=== PATIENT | male | born 1990 ===

== ENCOUNTER 2025-02-01 09:32 | Outpatient (REF) | payer OTHER, SELFPAY ==
--- OUTSIDE RECORDS SUMMARY | 2025-02-01 11:00 | XMS_ITS | Encounter Summary ---
Author Organization [facility] Address [address] [place] [address] Phone Care Team Providers Care High Man Name Role Phone Unavailable Primary Care Provider Unavailabl e Encounter Details Date Type Department Care Team (Late st Contact Info) Description 04/18/2018 Conversion [facility]counter [facility] [address] [address] Social History Tobacco Use Types Packs/Day Years Used Date Smoking Tobacco: Never Assessed Sex and Gender Information Value Date Recorded Sex Assigned at Not on file Legal Sex Male 6:08 PM EDT Gender Identity Not on file Sexual Orientation Not on file documented as of this encounter Plan of Treatment Not on file documented as of this encounter Visit Diagnoses Not on filedocumented in this encounter
--- OUTSIDE RECORDS SUMMARY | 2025-02-01 11:00 | XMS_ITS | Clinical Summary ---
Author Organization [facility] Address [address] [place] [address] Phone Care Team Providers Care Bread Dumper Name Role Phone Unavailable Primary Care Provider Unavailabl e Immunizations Immunization Administration Dates Next Due DTaP 06/04/1998, 5,04/30/1993,02/28,1992 Hep B, ped/adol 07/31/1993,1992,1992 Hib (PRP-T) 02/04/1994, 3,02/28/1993,12/31 Influenza, injectable, quadrivalent 09/08/2011 Influenza, injectable, triva lent, preservative free 11/25/2007 MMR 06/04/1998,02/04/1994 Meningococcal Conj (Menactra) MCV4P 09/08/2011,0 07/10/2008 OPV 06/04/1998, 5,02/28/1993,12/31 Td (adult) (Tenivac), 5 Lf t etanus toxoid, PF, adsorbed 09/03/2005 Tdap 09/08/2011 Varicella 1992 Family History Relation Name Status Comments Father Alive healthy, IBS Maternal Grandfather Alive hyperte nsion, hyperlipidemia, ALYSA Maternal Grandmother Alive IBS, DM ., hypertension, transient ischemia Mother Alive healthy Other Alive Siblings: healt hy Paternal Grandfather Alive CAD, st roke Paternal Grandmother Alive healthy Social History Tobacco Use Types Packs/Day Years Used Date Smoking Tobacco: Never Assessed Sex and Gender Information Value Date Recorded Sex Assigned at Not on file Legal Sex Male 6:08 PM EDT Gender Identity Not on file Sexual Orientation Not on file Last Filed Vital Signs Vital Sign Reading Time Taken Comments Blood Pressure 124/74 09/08/2011 12:00 AM EDT Pulse - - Temperature 37.2 ??C (98.9 ??F) 04/09/2011 12:00 AM E DT Respiratory Rate - - Oxygen Saturation - - Inhaled Oxygen Concentration - - Weight 76.9 kg (169 lb 9.6 oz) 09/08/2011 12:00 AM EDT Height 181.6 cm (5' 11.5 ) 09/08/2011 12:00 AM E DT Body Mass Index 23.32 09/08/2011 12:00 AM EDT Plan of Treatment Health Maintenance Due Date Last Done Comments Varicella Vaccines (1 of 2 - 13+ 2-dose series) 2005 1992 DTaP,Tdap,and Td Vaccines (7 - Td or Tdap) 09/08/2021 09/08/2011, 09/03/2005, 06/04/1998, Additional history exists Influenza Vaccines (#1) 2024 09/08/2011, 11/25 COVID-19 Vaccine ( season) 2024 Hepatitis B Vaccines Completed 07/31/1993, 1992, 1992 HIB Vaccines Completed 02/04/1994, 11/1992, 02/28/1993, Additional history exists IPV Vaccines Completed 06/04/1998, 01/1995, 02/28/1993, Additional history exists MMR Vaccines Completed 06/04/1998, 02/04/1994 Meningococcal Vaccine Completed 09/08/2011, 008 HPV Vaccines Aged Out No longer eligi ble based on patient's age to complete this topic Hepatitis A Vaccines Aged Out No long er eligible based on patient's age to complete this topic Men B Vaccine Aged Out No longer elig ible based on patient's age to complete this topic Pneumococcal Vaccine Aged Out No long er eligible based on patient's age to complete this topic
--- OUTSIDE RECORDS SUMMARY | 2025-02-01 11:00 | XMS_ITS | Continuity of Care Document ---
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 It does not include entries that were removed or entered in error. Problem Status Onset Date Problem Type Date of Resolution Comme nts Source bronchitis Active Condition DoD vocal cord disorders Active Condition DoD Allergies, Adverse Reactions, Alerts Combined list of allergies from Department of Defense and Veterans Affairs facilities. It does not include entries that were removed or entered in error. Substance Category Reaction Severity Reaction type Status Date Reported Comments Source No Known Allergies Drug allergy (disorder) active 09/01/2014 [place] [address] Immunizations Combined list of available immunizations from the Department of Defense and Veterans Affairs facilities. 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 Status Comments Source Influenza, injectable, quadrivalent, preservative free 6 2018 [id number] 150 Seqirus (SEQ) complet ed Influenza , injectabl e, quadrival ent, preservat naca free DoD Influenza, seasonal, injectable 1 2017 [id number] Seqirus (SEQ) comple t ed Influenza , seasonal, injectabl e DoD Influenza, seasonal, injectable, preservative free 1 2016 [id number] Transcribed (TRS) complet ed Influenza , seasonal, injectabl e, preservat anca free DoD influenza virus vaccine, unspecified formulation 1 2015 [id number] Seqirus (SEQ) comple t ed influenza virus vaccine, unspecifi ed formulati on DoD influenza, live, intranasal, quadrivalent 2 2014 [id number] [employer] (MED) complet ed influenza , live, intranasa l, quadrival ent DoD hepatitis A and hepatitis B vaccine 3 2014 [id number] SmithKline (SKB) complet ed hepatitis A and hepatitis B vaccine DoD hepatitis A and hepatitis B vaccine 1 2013 [id number] 104 [employer] (SKB) complet ed hepatitis A and hepatitis B vaccine DoD Influenza, seasonal, injectable, preservative free 1 2013 [id number] 140 Novartis [employer]. (NOV) complet ed Influenza , seasonal, injectabl e, preservat anca free DoD hepatitis A and hepatitis B vaccine 1 2013 [id number] 104 [facility] (SKB) complet ed hepatitis A and hepatitis B vaccine DoD poliovirus vaccine, inactivated 1 2013 [id number] 10 Sanofi Pasteur (PMC) complet ed polioviru s vaccine, inactivat ed DoD meningococcal polysaccharid e (groups A, C, Y and W-135) diphtheria toxoid conjugate vaccine (MCV4P) 1 2013 [id number] Sanofi Pasteur (PMC) complet ed meningoco ccal polysacch aride (groups A, C, Y and W-135) diphtheri a toxoid conjugate vaccine (MCV4P) DoD tetanus toxoid, reduced diphtheria toxoid, and acellular pertu is vaccine, adsorbed 1 2013 [id number] 115 [employer] (SKB) complet ed tetanus toxoid, reduced diphtheri a toxoid, and acellular pertussis vaccine, adsorbed DoD Adenovirus, type 4 and type 7, live, oral [id number] [facility] (BRR) complet ed Adenoviru s, type 4 and type 7, live, oral DoD measles virus vaccine 0 2013 05 () Not Given measles virus vaccine DoD rubella virus vaccine 0 2013 06 () Not Given rubella virus vaccine DoD mumps virus vaccine 0 2013 07 () Not Given mumps virus vaccine DoD varicella virus vaccine 0 2013 21 () Not Given varicella virus vaccine DoD Encounters Combined list of: 1) Encounters from Department of Veterans Affairs facilities going backup to the last 18 months, not all VA inpatient encounters are included; 2) Encounters from the Department of Defense facilities going backup to 280 months. Location Location Details Encounter Type Encounter Number Reason For Visit Attending Provider ADM Date DC Date Status Disposition Source [facility] [address](Opt ometry [facility]) OUTPATIENT [id number] Notes Entered by: ALOK SEPULVEDA 26 Jul 2014 0754 ------- ------- ------- ------- -- RIZWAN YU 07/26 Released w/o Limitations [facility] [place] [address](O ptometr y Clinic BMT [facility]) [place] [address]([facility]) OUTPATIENT [id number] DAPHNIE LOMELI 08/08 Released w/o Limitations [facility] [place] [address]([facility] d) [place] [address](MAS Beast) OUTPATIENT [id number] Notes Entered by: Jessenia CHRIS 01 Sep 2014 0904 ------- ------- ------- ------- -- pain pack BELLA CHRIS 09/01 Released w/o Limitations [facility] [place] [address](M Beast) [place] [address]([facility] S01B Taj) OUTPATIENT [id number] ftsdemetriol MAGNO LEE 02/09 Released w/o Limitations [facility] [place] [address](A MH S01B Taj ) [place] [address]([facility] S01B Taj) OUTPATIENT [id number] EUGENIA/VINI HOLCOMB 04/30 Released w/o Limitations [facility] [place] [address](A MH S01B Taj ) [facility]) OUTPATIENT [id number] Notes Entered by: CIRA MENDEZ 04 Jun 2015 1259 ------- ------- ------- ------- -- TREVA In-Proc KULWINDER Zee 06/04 Released w/o Limitations [facility] [employer] [facility] [employer]([facility]) OUTPATIENT [id number] Notes Entered by: Milton MATTHEW 28 Jun 2015 0910 ------- ------- ------- ------- -- Mole removal SAMUEL MATTHEW 06/28 Released w/o Limitations [employer]([facility]) [employer]([facility] Team C AD/Non-AD ) OUTPATIENT [id number] ROSA hCatterjee 06/28 Released w/o Limitations [employer]([facility] Team C AD/Non- AD) [facility]) TELE CONSULT [id number] Notes Entered by: Milton MATTHEW 03 Jul 2015 1136 ------- ------- ------- ------- -- Path results CHARLIE RANGEL 07/03 [facility]) OUTPATIENT [id number] expecto rant cough ANTONIA CARR 07/05 Released w/o Limitations [facility] on[facility]in e [facility]) [facility]) OUTPATIENT [id number] ent/ref EDUARDO Hyatt 07/11 Released w/o Limitations [facility](W arrior Operati onal Medicin e A) [facility]([place] laryngolo EG) OUTPATIENT [id number] VOCAL CORD DISORDE RS ROSAMARIA SANTIAGO 08/02 Released w/o Limitations [facility](O tolaryn golo EG) [place] [address](AFN G 104 Med Sq-FM) OUTPATIENT [id number] Notes Entered by: STACY SOSA 17 Apr 2017 1002 ------- ------- ------- ------- -- [employer] ice PHAQ STACY SOSA 04/17 [facility] [place] [address](A FNG 104 Med Sq-FM) [place] [address](AFN G 104 Med Sq-FM) OUTPATIENT [id number] Notes Entered by: KEMAL CRUZ 04 Aug 2018 1448 ------- ------- ------- ------- -- KEMAL DUEÑAS 08/04 Released w/o Limitations [facility] [place] [address](A FNG 104 Med Sq-FM) [place] [address](AFN G 104 Med Sq-FM) OUTPATIENT [id number] Notes Entered by: KEMAL CRUZ 06 Mar 2019 1249 ------- ------- ------- ------- -- PFB KEMAL CRUZ 03/06 Released w/o Limitations [facility] [place] [address](A FNG 104 Med Sq-FM) [place] [address](AFN G 104 Med Sq-FM) OUTPATIENT [id number] Notes Entered by: KEMAL CRUZ 07 May 2019 0859 ------- ------- ------- ------- -- KEMAL Jones 05/07 Released with Work/Duty Limitations [facility] [place] [address](A FNG 104 Med Sq-FM) [place] [address](AFN G 104 Med Sq-FM) OUTPATIENT [id number] Notes Entered by: STACY SOSA 07 Aug 2019 1424 ------- ------- ------- ------- -- [employer] ice STACY WOOD 08/07 Released w/o Limitations [facility] [place] [address](A FNG 104 Med Sq-FM) [place] [address](AFN G 104 Med Sq-FM) OUTPATIENT [id number] Notes Entered by: NANCYKEMAL YUN Maya 04 Sep 2019 1122 ------- ------- ------- ------- -- L ankle pain KEMAL CRUZ TINO 09/04 Released with Work/Duty Limitations [facility] [place] [address](A FNG 104 Med Sq-FM) [place] [address](AFN G 104 Med Sq-FM) OUTPATIENT [id number] Notes Entered by: NANCYKEMAL TINO 10 Dec 2019 0900 ------- ------- ------- ------- -- Left ankle pain KEMAL CRUZ TINO 12/10 Released with Work/Duty Limitations [facility] [place] [address](A FNG 104 Med Sq-FM) [facility] En[facility] [id number] 03/18 [facility] En[facility] [id number] 05/06 [facility] [id number] 09/14 [facility] En[facility] [id number] 09/15 [facility] Procedures Combined list of: 1) Procedures from Department of Veterans Affairs facilities going back up to thelast 18 months, not all VA non-surgical procedures are included; 2) All procedures from the Department of Defense facilities. Procedure Procedure Type Code Date Perfomer Comments Sour e LARYNGOSCOPY, FLEXIBLE; DIAGNOSTIC 5 DoD SHAVING OF EPIDERMAL OR DERMAL LESION, SINGLE LESION, TRUNK, ARMS OR LEGS; LESION DIAMETER 0.6 TO 1.0 CM 5 DoD INFUSION, NORMAL SALINE SOLUTION , [address] [facility] DETERMINATION OF REFRACTIVE STATE 4 [facility] Laryngoscopy Diagnostic Flexible Laryngoscopy Diagnostic Flexible 23329 5 ROSAMARIA SANTIAGO Verbal consent obtained. Afrin and lidocaine used. Findings per exam. No complications. DoD Shaving Of Lesion Trunk .6 to 1cm Shaving Of Lesion Trunk .6 to 1cm 90228 5 SAMUEL MATTHEW DoD Infusion, normal saline solution , [address] [facility] IV Infusion For Hydration 31 Minutes To 1 Hour IV Infusion For Hydration 31 Minutes To 1 Hour 45193 5 VINI BUTTS Screening Test Of Visual Acuity, Quantitative, Bilateral Screening Test Of Visual Acuity, Quantitative, Bilateral [address] [facility] Determination Of Refractive State Determination Of Refractive State [address] [facility] Spectacles Services Fitting Monofocal Except For Aphakia Spectacles Services Fitting Monofocal Except For Aphakia [address] [facility] Social History Combined list of available smoking, tobacco, and other social history from Department of Defense and Veterans Affairs facilities. Social History Type Response Date Comment Sour e This section is an empty social history section. [facility]
--- OUTSIDE RECORDS SUMMARY | 2025-02-01 11:01 | XMS_ITS | Data Portability ---
Author Organization [facility] Address [address] [place] [address] Assessment Encounter Date Assessment Date Assessment LastModified by Organization Details LastModified Time 2024 2024 [id number] [place] [id number] (PITCH GATHERER) : MDM LOW MUST MEET 2 OF 3 ELEMENTS: PROBLEMS, DATA OR RISK ELEMENT 1: PROBLEMS ADDRESSED (LOW): 2 OR MORE SELF-LIMITED OR MINOR PROBLEMS OR 1 STABLE CHRONIC ILLNESS OR 1 ACUTE UNCOMPLICATED ILLNESS OR INJURY ELEMENT 2: DATA TO BE REVISED AND ANALYZED (LOW) MUST MEET 1 OF 2 CATEGORIES: CATEGORY 1. REVIEW OF PRIOR EXTERNAL NOTES/RESULTS, ORDERING OF TEST(S) CATEGORY 2. ASSESSMENT REQUIRING INDEPENDENT HISTORIAN(S) INCLUDE WHO THE HISTORIAN IS AND RELATION TO PT AND WHY PT IS UNABLE TO GIVE COMPLETE HISTORY ELEMENT 3: RISK (LOW) RISK OF COMPLICATIONS AND/OR MORBIDITY OR MORTALITY OF PATIENT MANAGEMENT PROVIDER MUST THOROUGHLY DOCUMENT ALL OF THE ELEMENTS COVERED Not available 2024 15:45:54 12/23/2024 12/23/2024 Patient agreed and verbally consents to this audio and video Telehealth appt via a secure platform [email or web address] Not available 12/23/2024 09:25:29 Plan of Treatment Reminders Order Date Submit Date Provider Last Modified By Organization Details Last Modified Time Details Appointments None recorded. Lab lipid panel, serum 2023 024 [facility], [address] [place] [address], [place], [address], 11:29:59 CMP, serum or plasma 2023 024 [facility], [address] [place], [address], 4 16:08:16 testostero ne, free + total, serum 2023 [facility], [address] [place] [address], [address], 5 08:49:38 lh + FSH, serum 2023 [facility], [address] [place] [address], [address], 4 16:08:16 CBC w/ auto diff 2023 [facility], [address] [place] [address], [address], 5 10:55:34 TSH, serum or plasma 2023 [facility], [address] [place] [address], [address], 4 16:08:16 cortisol, am, serum 2023 [facility], [address] [place] [address], [address], 4 16:08:16 iron + TIBC + ferritin, serum 2023 [facility], [address] [place] [address], [address], 4 16:08:17 vitamin D, 25-hydroxy , total, serum 2023 [facility], [address] [place] [address], [address], 4 16:08:17 vitamin B12, serum 2023 [facility], [address] [place] [address], [address], 4 16:08:17 babesia microti igg+igm Ab, serum 2023 024 [facility], [address] [place] [address], [address], 5 17:16:31 anaplasma phagocytop hilum Ab, serum 2023 024 [facility], [address] [place] [address], [address], 5 17:10:48 HbA1c (hemoglobi n A1c), blood 2023 024 [facility], [address] [place] [address], [address], 5 13:35:26 Referral None recorded. Procedures None recorded. Surgeries None recorded. Imaging None recorded. Medication Orders Zithromax Z-West 250 mg tablet 2024 025 [id number], [address] [place] [address], [address], 5 08:36:33 prednisone 10 mg tablet 2024 025 [facility] #[id number], [address] [place] [address], [address], 5 08:36:22 tramadol 50 mg tablet 2023 024 [facility] #0838, [address] [place], [address], 4 15:57:26 alprazolam 0.5 mg tablet 2023 024 [facility] #0838, [address] [place], [address], 4 15:57:32 testostero ne 1 % (50 mg/5 gram) transderma l gel packet 2023 024 [facility] #0833, [address] [place], [address], 4 15:57:34 Patient TargetsNo targets recorded. Patient Instructions Encounter Date Encounter Id Patient Instructions Last Modified By Organization Details Last Modified Time 2024 [id number] methacholine challenge* [email or web address] Not available 11/08/2024 08:00:16 complete PFT w/ post bronchodilator spirometry* - note, needs a methacholine challenge as well see order [email or web address] Not available 12/09/2024 08:37:18 learning about vitamin D Not available 2024 15:57:22 Reason for Referral None Reported. Results Created Date Observation Date Name Description Value Unit Range Abnormal Flag Note LastModifiedBy Organization Detail LastModifiedTime 12/09/1912/09/2024 compl ete PFT w/ post [facility] hodil ator doug metry * No observ ation record ed. [email or web address] [address], [address], 12/09/2024 08:45:53 Result Notes None recorded. Problems Name Problem SNOMED Code Status Onset Date Resolution Date Notes Provider Name and Address Organization Details Recorded Time Injury of left Achilles tendon Active [facility] 4 09:42:16 Anxiety 86930502 Active [facility] 4 09:42:44 Posttrauma tic stress disorder 08576083 Active [facility] 4 09:42:54 Gastroesop hageal reflux disease 456184683 Active 2006 [facility] 4 09:43:26 Insomnia 452597833 Active 2006 [facility] 4 09:43:43 Low back pain 434847146 Active 2014 [facility] [place] [facility] 4 09:57:39 Vitamin D deficiency 71735749 [facility] 2014 [facility] 4 09:58:10 Depressive disorder 89843420 Active 2006 [facility] 4 09:58:35 Hypogonadi sm 52973096 Active 2023 PAO VIVAS [address] [place] [address], [id number], [facility] 4 13:20:00 Fatigue 82497617 Active 2023 Patrick Lilly DO [address] [place] [address], [address], [facility] 4 15:51:26 Multiple joint pain 74292049 Active 2023 Patrick Lilly DO [address] [place] [address], [address], [facility] 4 15:53:46 Dyspnea on exertion 69318938 Active 2023 Patrick Lilly DO [address] [place] [address], [address], [facility] 4 15:54:23 Acute sinusitis 50138262 Active 2024 PAO VIVAS [address] [place] [address], [address], [facility] 5 09:25:16 Multiple premature ventricula r complexes 026395068 Active 2024 PAO VIVAS [address] [place] [address], [address], [facility] 5 09:09:15 Palpitatio ns 69269486 Active 2024 PAO VIVAS [address] [place] [address], [address], [facility] 5 13:52:32 Ectopic atrial tachycardi a 556758295 Active 2024 Patrick Lilly, DO [address] [facility], [place], [address], [facility] 09:27:35 Problem Notes None recorded. Procedures Surgical History None recorded. Imaging Results Imaging Date Name Status LastModified by Organization Details LastModified Time 12/09/2024 complete PFT w/ post bronchodilator spirometry* completed [email or web address] [facility] [address] [place], [address], 12/09/2024 08:45:53 Procedure Notes None recorded. Medical Equipment None Reported. Allergies No known drug allergies Medications Name Sig Start Date Stop Date Status Note LastModified by Organization Details LastModified Time Prescriptio n - Clarificati on 08/23 completed Not Available Not Available Not Available prednisone 10 mg tablet 40 mg x 2 days30 mg x 2 days20 mg x 2 days10 mg x 2 days 01/16 completed Not Available Not Available Not Available valacyclovi r 1 gram tablet Take 1 tablet every 12 hours by oral route for 5 days. 12/21 completed Not Available Not Available Not Available ondansetron HCl 4 mg tablet Take 1 tablet every 8 hours by oral route as needed. 2023 active Not Available Not Available Not Avai lable tramadol 50 mg tablet Take 2 tablets twice a day by oral route as needed for 28 days. 2023 active Not Available Not Available Not Avai lable bupropion HCl SR 100 mg tablet,12 hr sustained-r elease Take 1 tablet by mouth daily. 2023 active Not Available Not Available Not Avai lable alprazolam 0.5 mg tablet Take 1 tablet 3 times a day by oral route as needed. 2023 active Not Available Not Available Not Avai lable propranolol 40 mg tablet Take 1 tablet every day by oral route as needed for 30 days. 2024 active Not Available Not Available Not Avai lable ondansetron [address] 1 tablet twice a day by transling ual route as needed. 08/23 completed Not Available Not Available Not Available hyoscyamine 0.125 mg disintegrat ing tablet Place 1 tablet every day by sublingua l route. 11/01 completed Not Available Not Available Not Available pantoprazol e 40 mg tablet,kassandra yed release Take 1 tablet every day by oral route. active Not Available Not Available No t Available testosteron e cypionate 200 mg/mL intramuscul ar oil Inject 0.25 mL every week by intramusc ular route. 2024 active Not Available Not Available Not Avai lable testosteron e 1 % (25 mg/2.5 gram) transdermal gel packet Apply 2 packets every day by transderm al route for 30 days. 2023 active Not Available Not Available Not Avai lable testosteron e 1 % (50 mg/5 gram) transdermal gel packet Apply 1 packet every day by transderm al route as directed for 30 days. 2023 active Not Available Not Available Not Avai lable Daily Terra tablet Take 1 tablet every day by oral route. active Not Available Not Available No t Available metoprolol tartrate 25 mg tablet Take 1 tablet every day by oral route for 30 days. 01/17 completed Not Available Not Available Not Available cholecalcif walter (vitamin D3) 1,250 mcg (50,000 unit) capsule Take 1 capsule every week by oral route. active Not Available Not Available No t Available Xyosted 75 mg/0.5 mL subcutaneou s auto-inject or 2024 active Not Available Not Available Not Avai lable albuterol 90 mcg-budeson priyanka 80 mcg/actuati on HFA aerosol inhaler Inhale 2 inhalatio ns twice a day by inhalatio n route as needed. active Not Available Not Available No t Available Vitals Date Recorded Body height Body mass index (BMI) Body weight Oxygen saturation Oxygen saturation in Arterial blood by Pulse oximetry Heart rate Systolic blood pressure Diastolic blood pressure Provider Name and Address Organization Details Last Updated DateTime 4 180.34 cm 27.2 kg/m2 78379.5 1 g 97 % 97 % 73 /min 114 mm[Hg] 78 mm[Hg] [facility] 4 15:34:24 Social History None recorded. Functional Status None recorded. Mental Status None recorded. Family History Relationship Description Onset Age of this Age Resolved Age Notes LastModified by Organization Details LastModified Time Maternal Grandmother Alzheimer's disease [email or web address] Not available 2023 10:03:20 Maternal Grandmother Type 2 diabetes mellitus [email or web address] Not available 2023 10:03:29 Maternal Grandmother Dementia [email or web address] Not available 06/29 10:04:09 Paternal Grandmother Alzheimer's disease [email or web address] Not available 2023 10:03:20 Paternal Grandmother Dementia [email or web address] Not available 06/29 10:04:09 Mother Hypertensive disorder [email or web address] Not available 2023 10:03:38 Father Hyperlipidem ia [email or web address] Not available 2023 10:03:50 Paternal Grandfather Aortic aneurysm [email or web address] Not available 2023 10:04:26 Medical History No medical history recorded. Immunizations Vaccine Type Date Status Note Provider Nam e and Address Organization Details Recorded Time Influenza, [place] completed Patrick Lilly DO [address] [place] [address], [address], [facility] 09/15/2024 08:14:19 Past Encounters Encounter ID Performer Location Encounter Start Date Encounter Closed Date Diagnosis/Indication Diagnosis SNOMED-CT Code Diagnosis ICD10 Code Diagnosis Note [id number] Patrick Lilly DO [facility] [address] [place] [phone] 2024 15:08:32 2024 16:02:56 Low back pain 776956790 M54.50 Anxiety 40075020 F41.9 Hypogonadism 63150913 E2 9.1 Cholesterol screening 27 1095869 Z13.220 Family his tory of diabetes mellitus type 2 111109524 Z83.3 Vitamin D deficiency 347 25432 E55.9 Fatigue 91247818 R53.83 will chk lab Multiple joint pain 3567 8005 M25.50 noted ongoing issue Dyspnea on exertion 6084 5006 R06.09 poss exercise induced [id number] PAO VIVAS [facility] [address] [facility],[place] [address] 12/23/2024 08:24:09 12/23/2024 09:34:14 Acute sinusitis 97795658 J01.11 start on abx and steroid taper Health Concerns Section Related Observation LastModified by Organization Detai ls LastModified Time None Recorded Concern Status LastModified by Organization Details LastModified Time None Recorded Advance Directives Directive None Recorded Payers Encounter Date Sequence Insurance Name Policy Number Policy Paredes Covered Member ID Paredes Member ID Guarantor Name 2024 1 [facility] [id number] Kaleb Hernandes [id number] Kaleb Hernandes 12/23/2024 1 [facility] [id number] Kaleb Hernandes [id number] Kaleb Hernandes Notes Date Note Type Note Provider Name a nd Address Organization Details Recorded Time 2024 text/html here for brittany relates has been having years of exertional dyspneastates that he has been struggling with this for years dante with exercisealso needs labgerd is still an issue without meds uses pantoprazole since 20 yrs of agemust consider egd at some point to r/o Chinyere Lilly DO [address] [place], [address], [facility] 2024 16:00:49 12/23/2024 text/html c/o sinus infection? The patient is participating in this appointment via telemedicine communication with a phone call/video calling service (Doxy)The patient consents to use of these platforms in place of an in-person appointment due to either sick symptoms the patient is presenting with or current office closure due to COVID exposure in order to keep our office staff and patients safe The patient presents to the office today with concerns of sick symptoms including coughing, sneezing, sinus pressure and pain, hoarseness of voice, general lethargy no feverdoes have bodyaches and chills The symptoms started originally on thursday night into The patient reports exposure to work possibly vs gym, been around a few sick peopleThe patient symptoms mainly involves the sinus pain and body aches Pertinent comorbidities include n/a The patient symptoms are alleviated by restThe patient symptoms are exacerbated by activity, causes the coughing to act up The patient has tested for COVID-19 and the results was negative x 2 PAO VIVAS [address] [facility], [place], [address], [facility] 12/23/2024 09:32:30
[2025-02-01 13:20] LABS: MANUAL DIFF FLAG NO
[2025-02-01 13:35] LABS: Basophils Percent Auto 0.1 % (0-2); Eosinophils Absolute Auto 0.1 X10*3/uL (0.0-0.4); Eosinophils Percent Auto 1.8 % (0-4); Hematocrit 45.2 % (42.0-52.0); Hemoglobin 14.9 g/dl (14.0-18.0); Imm Gran Abs Auto 0.02 X10*3/uL (0.00-0.03); Imm Gran Pct Auto 0.3 % (0.0-0.4); Lymphocytes Absolute Auto 2.4 X10*3/uL (1.2-4.9); Lymphocytes Percent Auto 36.5 % (20-40); Mean Corpuscular Hemoglobin 28.5 pg (27.0-33.0); Mean Corpuscular Volume 86.6 fL (80.0-98.0); Mean Platelet Volume 12.2 fL (9.4-12.4); Monocytes Absolute Auto 0.6 X10*3/uL (0.1-1.2); Monocytes Percent Auto 8.8 % (2-11); Neutrophils Absolute Auto 3.5 x10*3/uL (2.0-8.3); Neutrophils Percent Auto 52.5 % (45-73); Platelet Count 236 X10*3/uL (160-400); Red Blood Count 5.22 X10*6/uL (4.60-5.80); Red Cell Distribution Width 12.3 % (11.0-16.0); White Blood Count 6.7 X10*3/uL (4.8-10.8)
[2025-02-01 13:55] LABS: Alanine Aminotransferase 30 U/L (0-40); Albumin Level 4.5 g/dL (3.5-5.0); Alkaline Phosphatase 74 U/L (39-117); Anion Gap 10 (12-20); Aspartate Amino Transferase 31 U/L (5-37); Bilirubin Total 0.5 mg/dL (0.0-1.0); Blood Urea Nitrogen 10 mg/dL (9-16); Calcium 9.2 mg/dL (8.4-10.2); Carbon Dioxide 30 mmol/L (22-29); Chloride 105 mmol/L (96-108); Estimated Glomerular Filt Rate > 60; Glucose Random 95 mg/dL (60-115); Potassium 4.8 mmol/L (3.3-5.1); Sodium 140 mmol/L (135-145); Total Protein 7.8 g/dL (6.5-8.0)
[2025-02-01 14:11] LABS: Thyroid Stimulating Hormone 1.68 uIU/mL (0.32-4.0); Vitamin D 25-OH Total 108.5 ng/mL (>30)
[2025-02-01 14:35] LABS: Vitamin B12 815 pg/mL (200-900)
[2025-02-16 01:58] LABS: Estradiol Free 1.93 pg/mL; Estradiol, Ultrasensitive 65 pg/mL (< OR = 29)
[2025-02-16 13:28] LABS: Testosterone, Free 654.7 pg/mL (35.0-155.0); Testosterone, Total 2242 ng/dL (250-1100)
== END 2025-02-01 09:33 | disposition home or self-care (01) ==
LOC: HO.MANLDS 09:32
PROVIDERS: Visit Provider Internal Medicine
DX: R53.83 Other fatigue (principal)
CPT/HCPCS: 36415; 80053; 82306; 82607; 82670; 82681; 84402; 84403; 84443; 85025